=== PATIENT | female | born 1980 | race Caucasian/White ===

== ENCOUNTER 2023-05-15 13:05 | Outpatient (REF) | payer OTHER, SELFPAY ==
--- NOTE | ~2023-05-15 | MR_ITS ---
EXAMINATION: MR SHOULDER WITHOUT CONTRAST, RIGHT CLINICAL INFORMATION: Right shoulder pain and decreased range of motion. COMPARISON: None available. TECHNIQUE: MRI of the shoulder without contrast was performed on a high-field scanner. FINDINGS: ROTATOR CUFF: Intact. No muscle atrophy or fatty infiltration. BICEPS: Intact. CORACOACROMIAL ARCH: The undersurface of the acromion is flat with no subacromial spur. Mild acromioclavicular arthrosis with focal degenerative cystic change. Small amount of fluid within subacromial subdeltoid bursa, consistent with minimal bursitis. LABRUM/CAPSULE: No labral tear. Intact joint capsule. GLENOHUMERAL JOINT/MARROW: Unremarkable. MR/MR shoulder RT wo con IMPRESSION: 1. Mild acromioclavicular arthrosis. 2. Minimal subacromial subdeltoid bursitis. 3. No rotator cuff or labral tear.
== END 2023-05-15 13:06 | disposition home or self-care (01) ==
LOC: HO.MRI 13:05
PROVIDERS: Visit Provider Family Medicine Sports Medicine
DX: M75.101 Unspecified rotator cuff tear or rupture of right shoulder, not specified as traumatic (principal)
CPT/HCPCS: 73221

== ENCOUNTER 2024-01-30 10:28 | Outpatient (REF) | payer OTHER, SELFPAY | END 2024-01-30 10:29 | disposition home or self-care (01) | LOC: HO.UMASIMG 10:28 | PROVIDERS: Visit Provider Internal Medicine | DX: Z13.89 Encounter for screening for other disorder (principal) ==

== ENCOUNTER 2024-04-09 09:27 | Outpatient (REF) | payer OTHER, SELFPAY ==
--- NOTE | ~2024-04-09 | US_ITS ---
CLINICAL HISTORY: F U CT HYPERDENSITY LEFT KIDNEY US retroperitoneum with color Doppler Comparison: None Findings: Right kidney normal size and echotexture, 11.0 cm length. No hydronephrosis. Normal color flow. No nephrolithiasis or evidence of renal masses. Left kidney normal size and echotexture, 11.6 cm in length. No hydronephrosis. Normal color flow. Echogenic renal cortical lesion midpole probable calcification measuring 5 x 4 x 3 mm. Urinary bladder is unremarkable. Prevoid volume two hundred seventy-two mL. Postvoid volume 17.5 mL. Ureteral jets are visualized bilaterally Anechoic cyst left ovary measuring 4.3 x 2.9 x 3.1 cm Impression: 1. Echogenic probable calcified renal cortical lesion midpole left kidney a CT or MRI with and without contrast renal protocol study is recommended 2. Elevated postvoid residual volume. 3. Simple cyst left ovary. This document has been electronically signed by: Sushant Bolaños MD on 04/09/2024 11:32:26
--- OUTSIDE RECORDS SUMMARY | 2024-04-09 09:58 | XMS_ITS | Continuity of Care Document ---
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 Apply thick layer and loosely cover with plastic wrap. - Active Procedures Procedure Date Office/Outpt E&M Established 15 Mins July Duplex Scan-extrem Veins; Endovenous Laser, 1st Vein Endovenous laser vein addon Endovenous Laser, 1st Vein Endovenous laser vein addon Duplex Scan-extrem Veins; / Endovenous Laser, 1st Vein Endovenous laser vein addon Advance Directives Directive Yes / No Effective Date File Name No Information Encounters Encounter Description Practice Location Reason(s) For Visit Diagnoses Date Provider Providers Copied on Encounter Office/Outpt E&M Established 15 Mins [facility], [address] [facility] [address] [place], [id number], [place] tel:[phone] R [facility] Venous insufficiency (chronic) (peripheral) 3 Anthony GLEASON FACS Sam Betancourt. [address] [facility], [address], [place], [address], [place]. tel: [phone] Referring Provider: Андрей Dee, [address] [place] [address] Medical Staff Office, [place], [address]. tel:[phone] [facility], [address] [place] [address] [address], [id number], [place] tel:[phone] [facility] [place] [facility] for f/u exam aft trtmt for cond oth than malig neoplmVenous insufficiency (chronic) (peripheral) 3 Anthony GLEASON FACS Sam Betancourt. [facility] [facility], [address] [address], [place], [address], [place]. tel: [phone] Referring Provider: Андрей Dee, [address] [place] [address] Medical Staff Office, [place], [address]. tel:[phone] [facility], [address] [place] [address] [address], [id number], [place] tel:[phone] [facility] - [place] [facility] [place] Venous insufficiency (chronic) (peripheral) 3 Anthony GLEASON FACS Sam Betancourt. [facility], [address] [address], [place], [address], [place]. tel: [phone] Referring Provider: Андрей Dee, [address] [place] [address] Medical Staff Office, [place], [address]. tel:[phone] [facility], [address] [place] [address] [address], [id number], [place] tel:[phone] [facility] [place] [facility] [place] Venous insufficiency (chronic) (peripheral) 3 Anthony GLEASON FACS Sam Betancourt. [address] [facility], [address] [facility], [place], [address], [place]. tel: [phone] Referring Provider: Андрей Dee, [address] [place] [address] Medical Staff Office, [place], [address]. tel:[phone] [facility], [address] [place] [address] [address], [id number], [place] tel:[phone] [facility] [place] [facility] [place] No Information 3 Anthony GLEASON FACS Sam RPMAURICE Betancourt. [address] [facility], [address], [place], [address], [place]. tel:[phone] Referring Provider: Андрей Dee, [address] [place] [address] Medical Staff Office, [place], [address]. tel:[phone] [facility], [address] [place] [address] [address], [place], [id number], [place] [phone] [facility] [place] [facility] for f/u exam aft trtmt for cond oth than malig neoplmVenous insufficiency (chronic) (peripheral) 3 Anthony Betancourt. [address] [facility], [facility] [address], [place], [address], [place]. tel:[phone] Referring Provider: Андрей Dee, [address] [place] [address] Medical Staff Office, [place], [address]. tel:[phone] [facility], [address] [place] [address] [address], [id number], [place] [phone] [facility] [place] [facility] [place] Venous insufficiency (chronic) (peripheral) 3 Anthony Betancourt. [address] [facility], [address], [place], [address], [place]. tel:[phone] Referring Provider: Андрей Dee, [address] [place] [address] Medical Staff Office, [place], [address]. tel:[phone] Family History Family Member Type Diagnosis Age At Onset No Information Payers Payer name Insurance type Covered constitution party ID Authormagia lainey(s) [employer] [id number] Social History Type Description Quantity Date Captured Comments Alcohol Use Details No Caffeine Use Details Unknown Tobacco Use Status Never smoked tobacco 2022 Smoking Status Never smoker Non-Smoking Tobacco Use Details : No Details Available : No Details Available Sex Female Chief Complaint And Reason For Visit No Information Reason For Referral Reason For Referral No Information History Of Present Illness Encounter Date Complaint History Of Prese nt Illness No Information Functional Status Date Functional Assessmen t No Information Instructions Date Instruction Additional Infor mation No Information Assessments Type Assessment Date assessment Venous insufficiency (chronic) ( peripheral) Patient Care Teams Name Effective Dates (start - stop) Status Members No Information
== END 2024-04-09 09:28 | disposition home or self-care (01) ==
LOC: HO.UMASIMG 09:27
PROVIDERS: Visit Provider Internal Medicine
DX: D50.9 Iron deficiency anemia, unspecified (principal); R93.5 Abnormal findings on diagnostic imaging of other abdominal regions, including retroperitoneum
CPT/HCPCS: 76770

== ENCOUNTER → 2024-04-09 10:00 | Outpatient (BNV) | payer OTHER, SELFPAY | PROVIDERS: Visit Provider Radiology Diagnostic Radiology | DX: N83.202 Unspecified ovarian cyst, left side (principal); N39.43 Post-void dribbling | CPT/HCPCS: 76770 ==